=== PATIENT | male | born 1980 | race Caucasian/White ===

== ENCOUNTER 2016-12-15 13:50 | Emergency (ER) | payer BC ==
[~2016-12-15] VITALS: Ht 185.4 cm; Wt 117.9 kg
[~2016-12-15 13:50] MED LIST: APAP500 PO; KEFLEX500 MG PO
== END 2016-12-15 15:14 | disposition home or self-care (01) ==
LOC: ER 13:50
DX: S90.31XA Contusion of right foot, initial encounter (principal); F10.99 Alcohol use, unspecified with unspecified alcohol-induced disorder; Z88.8 Allergy status to other drugs, medicaments and biological substances; V29.9XXA Motorcycle rider (driver) (passenger) injured in unspecified traffic accident, initial encounter; Y93.89 Activity, other specified; Y92.89 Other specified places as the place of occurrence of the external cause; Y99.8 Other external cause status

== ENCOUNTER 2016-12-21 12:28 | Emergency (ER) | payer BC ==
[~2016-12-21] VITALS: Ht 188 cm; Wt 113.4 kg
== END 2016-12-21 13:40 | disposition home or self-care (01) ==
LOC: ER 12:28
DX: S90.31XA Contusion of right foot, initial encounter (principal); F10.99 Alcohol use, unspecified with unspecified alcohol-induced disorder; Z88.6 Allergy status to analgesic agent; V29.9XXA Motorcycle rider (driver) (passenger) injured in unspecified traffic accident, initial encounter; Y93.89 Activity, other specified; Y92.89 Other specified places as the place of occurrence of the external cause; Y99.8 Other external cause status